=== PATIENT | male | born 1995 | race Caucasian/White ===

== ENCOUNTER 2016-08-26 10:31 | Emergency (ER) | payer OTHER ==
[2016-08-26 10:46] VITALS: BP 105/65; PULSE 82; RESP 16; TEMP 97.9; O2SAT 96
[2016-08-26] MEDS ORDERED: DEXAMETHASONE 4 MG TAB PO ONE (11:02)
[2016-08-26] MEDS ORDERED: ACETAMINOPHEN 500 MG TAB PO ONE (11:02)
[2016-08-26] MEDS ORDERED: DEXAMETHASONE 4 MG TAB ONE (11:08)
--- NOTE | 2016-08-26 11:14 | EDPHY ---
H & P Time Seen by Provider: 08/26/16 10:49 HPI/ROS: CHIEF COMPLAINT: Sore throat, headache, low-grade fever, fatigue, swollen lymph nodes HISTORY OF PRESENT ILLNESS: 20-year-old male presents reporting that for the last 4 days he has had a mild headache, sore throat, low-grade fever, feeling tired, and has a swollen lymph node on the left side of his neck. He is concerned that he may have strep throat. Patient has been using Tylenol, ibuprofen, DayQuil, and TheraFlu for his symptoms. Patient denies any shortness of breath or chest pain. No palpitations. No nausea vomiting always had some diarrhea. No urinary complaints. No neck pain. REVIEW OF SYSTEMS: Aside from elements discussed in the HPI, a comprehensive 10-point review of systems was reviewed and is negative. PAST MEDICAL HISTORY: Patient denies. SOCIAL HISTORY: Nonsmoker. Here with his father. VITAL SIGNS: see nurse's notes. GENERAL: Well-developed, well-nourished, in no acute distress. HEENT: Atraumatic Eyes: PERRL, EOMI, no conjunctival injection. Ears: TM clear bilaterally. Nose: No discharge. Mouth: moist mucous membranes. Pharynx: Mild erythema, exudate is present on the left tonsil, no abscess. Uvula is midline. NECK: Supple, left submandibular swollen lymph node, no meningismus, no tenderness. Negative Kernig's and Brudzinski's. LUNGS: Clear to auscultation bilaterally, no wheezes, rhonchi or rales. CARDIAC: Regular rate and rhythm, no rubs, murmurs or gallops. ABDOMEN: Soft, nontender, bowel sounds normal. BACK: No CVA tenderness. EXTREMITIES: Normal, no edema, FROM. NEURO: Alert and oriented, grossly nonfocal. SKIN: Warm and dry, no rash. PSYCHIATRIC: Normal mentation, no agitation. Smoking Status: Never smoked Constitutional: Initial Vital Signs Temperature (C) 36.6 C 08/26/16 10:35 Heart Rate 82 08/26/16 10:35 Respiratory Rate 16 08/26/16 10:35 Blood Pressure 105/65 08/26/16 10:35 O2 Sat (%) 96 08/26/16 10:35 O2 Delivery Mode Room Air Allergies/Adverse Reactions: No Known Allergies Allergy (Verified 08/26/16 10:46) Home Medications: Medication Instructions Recorded NK [No Known Home Meds] 08/26/16 Medical Decision Making ED Course/Re-evaluation: Rapid strep screen is negative. Patient had a Monospot drawn. This was negative. Patient received Decadron 8 mg by mouth for his swelling and difficulty swelling. He received ibuprofen as well in the emergency department. Please see the discharge instructions which were provided to the patient giving him information regarding rest, symptomatic care, and close follow-up. Differential Diagnosis: Differential diagnosis for the patient's sore throat was considered including but not limited to viral pharyngitis, bacterial pharyngitis, tonsillitis, tonsillar abscess, peritonsillar abscess, foreign body, epiglottitis, bacterial tracheitis. - Data Points Laboratory Results: 08/26/16 08/26/16 08/26/16 Unknown 11:30 10:45 Monoscreen NEGATIVE (NEGATIVE) Group A Strep Screen NEGATIVE (NEGATIVE) Group A Strep DNA Pending Medications Given: Discontinued Medications Acetaminophen (Tylenol) 1,000 mg PO EDNOW ONE Stop: 08/26/16 11:03 Last Admin: 08/26/16 11:10 Dose: 1,000 mg Dexamethasone (Decadron) 8 mg PO EDNOW ONE Stop: 08/26/16 11:03 Last Admin: 08/26/16 11:10 Dose: 8 mg Departure - Departure Disposition: Home, Routine, Self-Care Clinical Impression: Lymphadenopathy of left cervical region Pharyngitis Qualifiers: Pharyngitis/tonsillitis etiology: unspecified etiology Qualified Code(s): J02.9 - Acute pharyngitis, unspecified Condition: Good Instructions: Pharyngitis (ED), Strep Throat (ED) Additional Instructions: Your rapid strep screen is negative. If your strep DNA test returns positive, you will be contacted. We have sent a mono test. Please call [phone] in about an hour to obtain those results. For your sore throat, I suggest ibuprofen 400-600 mg every 6-8 hours to help with pain and swelling. Salt water gargles and throat lozengers will also be helpful. If you have nasal congestion, I suggest Flonase nasal spray. which is available over the counter as well as an oral decongestant such as Sudafed. For runny nose, I suggest an antihistamine. Claritin or Ninfa are nonsedating antihistamines. Drink plenty of fluids and get plenty of rest. Please follow up with your primary care physician if you're not improving as expected. Referrals: [facility] [Other] - As per Instructions
== END 2016-08-26 11:25 | disposition home or self-care (01) ==
LOC: CED 10:31
DX: R59.0 Localized enlarged lymph nodes (principal)
CPT/HCPCS: 86308-PO; 87880-PO